=== PATIENT | female | born 1980 | race Caucasian/White ===

== ENCOUNTER 2021-05-03 13:26 | Outpatient (REF) | payer OTHER, SELFPAY ==
[2021-05-03 15:51] LABS: HCG Quantitative 22135 mIU/mL
== END 2021-05-03 13:27 | disposition home or self-care (01) ==
LOC: HO.LAB 13:26
PROVIDERS: PCP Internal Medicine; Visit Provider Advanced Practice Midwife
DX: O20.0 Threatened abortion (principal); Z87.59 Personal history of other complications of pregnancy, childbirth and the puerperium
CPT/HCPCS: 36415; 81025; 84702; 86850; 86900; 86901; 99202

== ENCOUNTER 2021-05-04 14:18 | Outpatient (REF) | payer OTHER, SELFPAY ==
--- NOTE | ~2021-05-04 | US_ITS ---
EXAMINATION: US OBSTETRICAL ULTRASOUND CLINICAL INFORMATION: Threatened COMPARISON: None. LMP: Unknown. . TECHNIQUE: Transabdominal and transvaginal first trimester OB ultrasound FINDINGS: The uterus is normal in size and shape. There is an intrauterine gestational sac. No pole or yolk sac is seen. There is some echogenic debris seen in the gestational sac. Mean sac diameter measures 1.31 cm which would suggest gestational age of 6 weeks 1 day. The cervix is normal appearing. The right ovary measures 2.2 x 1.5 x 1.4 cm and is normal-appearing. The left ovary measures 2.9 x 2.6 x 2.4 cm. There is a 1.4 x 1.3 x 1.8 cm complex left ovarian cyst with a thick hypoechoic wall. There is no fluid in the pelvis. US/US OB <= 14 weeks fetus IMPRESSION: Intrauterine gestational sac. No pole or yolk sac seen. Mean sac diameter measures 1.3 cm which would suggest gestational age of 6 weeks 1 day. pole and yolk sac would be expected to be seen. 1.4 x 1.3 x 1.8 cm complex left ovarian cyst.
== END 2021-05-04 14:19 | disposition home or self-care (01) ==
LOC: HO.HMGCX 14:18
PROVIDERS: PCP Internal Medicine; Visit Provider Advanced Practice Midwife
DX: O20.0 Threatened abortion (principal)
CPT/HCPCS: 76801

== ENCOUNTER → 2021-05-06 11:25 | Outpatient (BNVA) | payer OTHER, SELFPAY | PROVIDERS: PCP Internal Medicine; Visit Provider Advanced Practice Midwife ==

== ENCOUNTER 2021-05-11 15:10 | Outpatient (REF) | payer OTHER, SELFPAY ==
--- NOTE | ~2021-05-11 | US_ITS ---
EXAMINATION: US OBSTETRICAL ULTRASOUND CLINICAL INFORMATION: with inconclusive viability COMPARISON: Previous exam 05/04/2021. LMP: Unknown. Gestational age by maternal dates is . Estimated date of delivery by maternal dates is . TECHNIQUE: Transabdominal and transvaginal first trimester OB ultrasound FINDINGS: The uterus appears anteverted and normal in size and shape. There is an intrauterine gestational sac. This measures 1.6 x 0.9 x 2.4 cm with mean sac diameter of 1.7 cm suggesting gestational age of 6 weeks 4 days. This is minimally increased in size. Previous mean sac diameter measured 1.3 cm. No pole or yolk sac is seen. There is some echogenic debris seen in the gestational sac. The cervix is normal appearing. The right ovary is normal-appearing and measures 2 x 1.3 x 1.3 cm. The left ovary measures 2.9 x 2.5 x 2.4 cm. There is a 1.4 x 1.3 x 1.6 cm complex left ovarian cyst. There is no fluid in the pelvis.. US/US OB pelvic and transvaginal IMPRESSION: Intrauterine gestational sac. There is minimal increase in size in the gestational sac compared to previous exam 05/04/2021. No pole or yolk sac seen. Ultrasound appearance is suggestive of embryonic demise.
== END 2021-05-11 15:11 | disposition home or self-care (01) ==
LOC: HO.US 15:10
PROVIDERS: PCP Internal Medicine; Visit Provider Advanced Practice Midwife
DX: O36.80X0 Pregnancy with inconclusive fetal viability, not applicable or unspecified (principal)
CPT/HCPCS: 76801; 76817

== ENCOUNTER → 2021-05-12 11:14 | Outpatient (BNVA) | payer OTHER, SELFPAY | PROVIDERS: PCP Internal Medicine; Visit Provider Advanced Practice Midwife ==

== ENCOUNTER → 2021-05-13 09:30 | Outpatient (BNVA) | payer OTHER, SELFPAY | PROVIDERS: Visit Provider Obstetrics & Gynecology | DX: O36.80X0 Pregnancy with inconclusive fetal viability, not applicable or unspecified (principal) | CPT/HCPCS: 99212 ==

== ENCOUNTER 2021-05-18 10:44 | Outpatient (REF) | payer OTHER, SELFPAY ==
--- NOTE | ~2021-05-18 | US_ITS ---
EXAMINATION: US OBSTETRICAL ULTRASOUND CLINICAL INFORMATION: with inconclusive viability. COMPARISON: None. LMP: Not known. Gestational age by maternal dates is not known. Estimated date of delivery by maternal dates is not known. TECHNIQUE: Limited transabdominal ultrasound pelvis is performed. FINDINGS: There is visualization of gestational sac measuring 2.3 x 1.0 x 2.0 cm. There is echogenic debris visualized within the gestational sac. No pole or yolk sac is visualized. The uterus is otherwise homogeneous in echotexture. The right ovary measures 2.99 x 1.65 x 1.53 cm and appears unremarkable. The left ovary measures 2.47 x 1.77 x 2.36 cm. There is anechoic cyst measuring 1.8 x 1.3 x 1.9 cm. US/US OB <= 14 weeks fetus IMPRESSION: Intrauterine gestational sac with no pole or yolk sac seen. The average gestational sac measurement of 1.73 cm is suggestive of 6 weeks and 5 days. There is echogenic debris seen within. Anechoic cyst left ovary.
== END 2021-05-18 10:45 | disposition home or self-care (01) ==
LOC: HO.HMGCX 10:44
PROVIDERS: PCP Internal Medicine; Visit Provider Obstetrics & Gynecology
DX: O36.80X0 Pregnancy with inconclusive fetal viability, not applicable or unspecified (principal)
CPT/HCPCS: 76801

== ENCOUNTER 2021-05-20 14:23 | Outpatient (REF) | payer OTHER, SELFPAY ==
[2021-05-21 09:44] LABS: CT PCR DETECTED (Not Detect.); NG PCR NOT DETECTED (Not Detect.)
== END 2021-05-20 14:24 | disposition home or self-care (01) ==
LOC: HO.LAB 14:23
PROVIDERS: PCP Internal Medicine; Visit Provider Obstetrics & Gynecology
DX: O02.1 Missed abortion (principal)
CPT/HCPCS: 87491; 87591; 99212